=== PATIENT | male | born 1940 | race Caucasian/White ===

== ENCOUNTER → 2016-11-13 | Outpatient (CLI) | payer MEDICARE, BC ==
[~2016-11-13] MED LIST: ASPI-496 PO; ATOR40TA78 PO; ENAL5TAB PO; GLIP10TA13 PO; INSU100V8 SQ; LEVO5DRO EACHEYE; LUTE1CAP PO; METH750T87 PO; MULT-717 PO; OTC stool softener; OXYC-302 PO; POTA15TA PO; TAMS0.4C2 PO; TRAM50TA2 PO
[2016-11-13 13:52] LABS: ASPARTATE AMINO TRANSFERASE 25 U/L (15-37); BLOOD UREA NITROGEN 20 mg/dL (7-18)
== END | disposition home or self-care (01) ==
LOC: STAR 12:28
PROVIDERS: ATTEND Urology
DX: Z01.818 Encounter for other preprocedural examination (principal); N20.0 Calculus of kidney; R79.1 Abnormal coagulation profile
CPT/HCPCS: 36415; 80053; 81001; 85025; 85610; 85730; 87086; 93005

== ENCOUNTER 2020-09-08 16:41 | Inpatient (IN) | payer BC, MEDICARE ==
[~2020-09-08] VITALS: Ht 175.3 cm; Wt 59.2 kg
[~2020-09-08 16:41] MED LIST changes: -ENAL5TAB PO; +ENAL5TAB10 PO; -OXYC-302 PO; +OXYC1TAB14 PO
--- NOTE | 2020-09-08 17:57 | NUR ---
PT BIB EMS FROM [facility] AFTER HE HAD A SYNCOPAL EPISODE TODAY. PT HIT HEAD, PT'S RIGHT EYE BRUISED. LAC NOTED TO FACE WITH STITCHES PLACED COMPENSATION/BENEFITS SPECIALIST. VS STABLE. PROCUREMENT SERVICES MANAGER ON. NSR NOTED. CALL LIGHT IN PLACE. WILL CONTINUE TO MONITOR.
[2020-09-08] MEDS ORDERED: INSU100V8 SQ (18:01)
--- NOTE | 2020-09-08 18:40 | NUR ---
DR RAUSCH IN ROOM
--- NOTE | 2020-09-08 18:46 | NUR ---
MED REC UPDATED WITH PATIENT
[2020-09-08] MEDS ORDERED: SODIUM CHLORIDE FLUSH 10ML SYR IVF PRN (19:00)
--- NOTE | 2020-09-08 19:07 | NUR ---
PT REPORTS HE HAS SOME DOUBLE VISION SINCE FALLING. DR RAUSCH AWARE. VS STABLE. CALL LIGHT IN PLACE. WILL CONTINUE TO MONITOR.
[2020-09-08] MEDS ORDERED: MELATONIN 5 MG TABLET PO PRN (20:00)
[2020-09-08] MEDS ORDERED: ACETAMINOPHEN 325 MG TABLET PO PRN (20:00)
[2020-09-08] MEDS ORDERED: BISACODYL 10 MG SUPP PR PRN (20:00)
[2020-09-08 21:23] LABS: BASOPHILS % (AUTO) 1 % (0-1); EOSINOPHILS % (AUTO) 0 % (1-7); LYMPHOCYTES % (AUTO) 6 % (22-44); MEAN CORPUSCULAR HGB CONC 33.2 g/dL (33.2-36.2); MEAN PLATELET VOLUME 7.7 fL (7.4-10.4); MONOCYTES % (AUTO) 3 % (2-9); NEUTROPHILS % (AUTO) 91 % (42-75); PLATELET COUNT 237 x10^3/uL (130-400); RED BLOOD COUNT 4.16 x10^6/uL (4.38-5.82); RED CELL DISTRIBUTION WIDTH 12.9 % (9.4-14.8)
[2020-09-08] MEDS: OXYcodone/APAP 5/325MG TABLET PO PRN ×2 (21:26→22:14)
[2020-09-08 21:29] VITALS: BP 148/70
[2020-09-08 21:32] LABS: MD NO
[2020-09-08 21:33] LABS: ANION GAP 8 mmol/L (5-15); CALCIUM 8.7 mg/dL (8.5-10.1); CHLORIDE 107 mmol/L (98-107); CHOLESTEROL, TOTAL 122 mg/dL (140-239); CREATININE 1.33 mg/dL (0.7-1.3); TRIGLYCERIDES 60 mg/dL (50-200); VLDL CHOLESTEROL 12 mg/dL (0-25)
[2020-09-08 21:43] LABS: HDL CHOL % 51 % (26-37); HDL CHOLESTEROL (DIRECT) 62 mg/dL (40-60); LDL CHOLESTEROL,CALCULATED 48 mg/dL (54-169); LDL/HDL RATIO 0.8 (0.5-3.0); TROPONIN I < 0.015 ng/mL (0.000-0.045)
[2020-09-09] VITALS (11 sets, daily range): BP systolic 127–170; BP diastolic 48–87
[2020-09-09 02:26] LABS: TROPONIN I < 0.015 ng/mL (0.000-0.045)
[2020-09-09] MEDS: OXYcodone/APAP 5/325MG TABLET PO PRN ×4 (02:55→18:35)
[2020-09-09] MEDS ORDERED: AMLO-210 PO (10:30)
[2020-09-09] MEDS ORDERED: ALOG25TA2 PO (10:30)
[2020-09-09] MEDS ORDERED: METF-366 PO (10:30)
[2020-09-09] MEDS ORDERED: GABA-826 PO (10:30)
[2020-09-09] MEDS: INSULIN LISPRO 100 UNITS/ML, PEN SQ-INSULIN SCH ×3 (10:31→21:51)
[2020-09-09] MEDS ORDERED: MAGNESIUM SULFATE PMX 2GM/50ML 50 ML IV ONE (12:00)
[2020-09-09] MEDS ORDERED: BALANCED SALT OPHTH IRRIG SOLN 18ML ONE (12:05)
[2020-09-09] MEDS ORDERED: BACITRACIN/POLYMIXIN B SULFATE OINT 14 GM ONE (12:05)
[2020-09-09] MEDS ORDERED: LIDOCAINE/PF 1%-EPI 1:200K, 30 ML ONE (12:05)
[2020-09-09] MEDS ORDERED: FENTANYL PF 250 MCG/5ML ONE (12:08)
[2020-09-09] MEDS ORDERED: ONDANSETRON 2MG/ML, 2ML IVPush PRN (13:00)
[2020-09-09] MEDS ORDERED: LORazepam 2 MG/ML, 1ML IVPush PRN (13:00)
[2020-09-09] MEDS ORDERED: LABETALOL 5MG/ML, 20ML IV PRN (13:00)
[2020-09-09] MEDS ORDERED: FENTANYL PF 100 MCG/2ML IV PRN (13:00)
[2020-09-09] MEDS ORDERED: hydrALAzine 20 MG/ML, 1ML IV PRN (13:00)
[2020-09-09] MEDS ORDERED: METHOCARBAMOL 1,000 MG in DEXTROSE 5% 100 ML IV PRN (13:00)
[2020-09-09] MEDS ORDERED: ACETAMINOPHEN 325 MG TABLET PO PRN (13:00)
[2020-09-09] MEDS ORDERED: OXYcodone 5 MG/5 ML ORAL.SOL UDC PO PRN (13:00)
[2020-09-09] MEDS ORDERED: HYDROmorphone 1 MG/ML, 1ML INJ IVPush PRN (13:00)
[2020-09-09] MEDS ORDERED: ROCURONIUM 10 MG/ML,10ML ONE (13:07)
[2020-09-09] MEDS ORDERED: SUCCINYLCHOLINE 20 MG/ML, 10ML ONE (13:07)
[2020-09-09] MEDS ORDERED: ONDANSETRON 2MG/ML, 2ML ONE (13:07)
[2020-09-09] MEDS ORDERED: PROPOFOL 10 MG/ML, 20ML ONE (13:07)
[2020-09-09] MEDS ORDERED: BACITRACIN OINT 500U/GM, 15 GM ONE (13:25)
[2020-09-09] MEDS ORDERED: hydrALAzine 20 MG/ML, 1ML ONE (14:49)
[2020-09-09] MEDS ORDERED: FENTANYL PF 100 MCG/2ML ONE (14:49)
[2020-09-09] MEDS ORDERED: OXYcodone 5 MG/5 ML ORAL.SOL UDC ONE (15:08)
[2020-09-09] MEDS ORDERED: ACETAMINOPHEN 650 MG/20.3 ML UDC ONE (15:08)
[2020-09-09 16:31] LABS: BASOPHILS % (AUTO) 0 % (0-1); EOSINOPHILS % (AUTO) 0 % (1-7); LYMPHOCYTES % (AUTO) 5 % (22-44); MEAN CORPUSCULAR HEMOGLOBIN 31.3 pg (27.5-34.5); MEAN CORPUSCULAR HGB CONC 33.4 g/dL (33.2-36.2); MEAN PLATELET VOLUME 7.7 fL (7.4-10.4); MONOCYTES % (AUTO) 4 % (2-9); NEUTROPHILS % (AUTO) 91 % (42-75); PLATELET COUNT 227 x10^3/uL (130-400); RED BLOOD COUNT 4.03 x10^6/uL (4.38-5.82)
[2020-09-09 16:39] LABS: MD NO
[2020-09-09] MEDS ORDERED: ACETAMINOPHEN 500 MG TABLET PO PRN (17:00)
[2020-09-09] MEDS: NAPROXEN 250 MG TABLET PO SCH ×2 (17:42→23:07)
[2020-09-09] MEDS ORDERED: SODIUM CHLORIDE 0.9% 1,000 ML IV SCH ×2 (18:00→18:01)
[2020-09-09] MEDS ORDERED: TAMSULOSIN 0.4 MG CAP.ER.24H PO SCH (21:00)
[2020-09-09] MEDS: CEFAZOLIN PMX 2GM/50ML 50 ML IVPB SCH (21:19)
[2020-09-09] MEDS: BACITRACIN OPHTH OINT 500U/GM, 3.5 GM EACHEYE SCH (21:20)
[2020-09-10 01:19] VITALS: BP 126/69
[2020-09-10] MEDS: OXYcodone/APAP 5/325MG TABLET PO PRN ×2 (01:28→13:11)
[2020-09-10] MEDS: CEFAZOLIN PMX 2GM/50ML 50 ML IVPB SCH (05:42)
[2020-09-10 08:15] VITALS: BP 154/64
[2020-09-10] MEDS: BACITRACIN OPHTH OINT 500U/GM, 3.5 GM EACHEYE SCH (08:29)
[2020-09-10] MEDS: INSULIN LISPRO 100 UNITS/ML, PEN SQ-INSULIN SCH ×2 (08:30→12:48)
[2020-09-10] MEDS: NAPROXEN 250 MG TABLET PO SCH (09:00)
[2020-09-10] MEDS ORDERED: TAMSULOSIN 0.4 MG CAP.ER.24H PO SCH (09:00)
[2020-09-10] MEDS ORDERED: GADOTERATE 7.5 MMOL/15ML SYR ONE (11:21)
[2020-09-10] MEDS ORDERED: ASPI-963 PO (13:15)
[2020-09-10] MEDS ORDERED: TRAM50TA2 PO (13:16)
[2020-09-10 13:40] VITALS: BP 146/58
== END 2020-09-10 15:40 | disposition home or self-care (01) | DRG 141 ==
LOC: ED 17:07 → EDIP 18:37 → 5SO 20:03 → DCLOUNGE 09-10 15:26
PROVIDERS: ADMIT Internal Medicine; ATTEND Hospitalist
PROC: 0NSM04Z Reposition Right Zygomatic Bone with Internal Fixation Device, Open Approach (ICD-10-PCS; principal; 2020-09-08)
PROC: 0NSP0ZZ Reposition Right Orbit, Open Approach (ICD-10-PCS; 2020-09-08)
DX: S02.40EA Zygomatic fracture, right side, initial encounter for closed fracture (principal); S02.31XA Fracture of orbital floor, right side, initial encounter for closed fracture; S02.91XA Unspecified fracture of skull, initial encounter for closed fracture; E11.21 Type 2 diabetes mellitus with diabetic nephropathy; S01.81XA Laceration without foreign body of other part of head, initial encounter; E78.5 Hyperlipidemia, unspecified; G90.9 Disorder of the autonomic nervous system, unspecified; I10 Essential (primary) hypertension; F02.80 Dementia in other diseases classified elsewhere, unspecified severity, without behavioral disturbance, psychotic disturbance, mood disturbance, and anxiety; Z20.822 Contact with and (suspected) exposure to COVID-19; G30.9 Alzheimer's disease, unspecified; H11.31 Conjunctival hemorrhage, right eye; H40.9 Unspecified glaucoma; H53.2 Diplopia; H54.7 Unspecified visual loss; N40.0 Benign prostatic hyperplasia without lower urinary tract symptoms; W22.03XA Walked into furniture, initial encounter; W18.39XA Other fall on same level, initial encounter; R01.1 Cardiac murmur, unspecified; Z79.4 Long term (current) use of insulin; Z87.442 Personal history of urinary calculi; Z83.3 Family history of diabetes mellitus; Z72.89 Other problems related to lifestyle; Y93.89 Activity, other specified; Y92.89 Other specified places as the place of occurrence of the external cause; Y99.8 Other external cause status
CPT/HCPCS: 36415; 70486; 70544; 70553; 80048; 80061; 82962; 83036; 83735; 84100; 84443; 84484; 85025; 87635; 93005; 93306; 93880; 99285; C1713; G0378; J0690; J2405; J2704; J3010; A9575; J0330; J0360; J1815; J3475; J7030